=== PATIENT | female | born 1965 | race Caucasian/White ===

== ENCOUNTER 2018-07-25 05:46 | Day surgery (SDC) | payer BC ==
[2018-07-25] MEDS: BUPIVACAINE 0.25% (MPF) 30 ML INJ (07:23)
[2018-07-25] MEDS ORDERED: NEOSTIGMINE 3 MG/3 ML SYRINGE ×2 (07:29→08:04)
[2018-07-25] MEDS ORDERED: GLYCOPYRROLATE 0.4 MG INJ ×3 (07:29→08:04)
[2018-07-25] MEDS ORDERED: ROCURONIUM 50 MG INJ (07:29)
[2018-07-25] MEDS ORDERED: SUCCINYLCHOLINE CHLORIDE 100 MG/5 ML SYG IV (07:29)
[2018-07-25] MEDS ORDERED: LIDOCAINE 2% (SDV) 5 ML INJ (07:29)
[2018-07-25] MEDS ORDERED: MEPERIDINE 100 MG INJ (07:29)
[2018-07-25] MEDS ORDERED: PROPOFOL 20 ML (07:29)
[2018-07-25] MEDS ORDERED: METOCLOPRAMIDE 10 MG INJ (08:04)
[2018-07-25] MEDS ORDERED: ONDANSETRON 4 MG INJ (08:04)
[2018-07-25] MEDS ORDERED: EPHEDrine SULFATE 50 MG/5 ML SYG IV (08:30)
[2018-07-25] MEDS ORDERED: DIPHENHYDRAMINE 50 MG INJ IV (08:30)
[2018-07-25] MEDS ORDERED: MIDAZOLAM 1 MG/ML 2 ML INJ IV (08:30)
[2018-07-25] MEDS ORDERED: OXYCODONE/ACETAMINOPHEN (5/325) TAB PO ×4 (08:30→09:00)
[2018-07-25] MEDS ORDERED: MEPERIDINE 25 MG INJ IV (08:30)
[2018-07-25] MEDS ORDERED: METOCLOPRAMIDE 10 MG INJ IV (08:30)
[2018-07-25] MEDS ORDERED: FENTAnyl 50 MCG/ML VIAL IV ×3 (08:30)
[2018-07-25] MEDS ORDERED: ONDANSETRON 4 MG INJ IV ×2 (08:30→09:00)
[2018-07-25] MEDS ORDERED: LABETALOL HCL 20MG INJ IV (08:30)
[2018-07-25] MEDS ORDERED: hydrALAzine 20 MG INJ IV (08:30)
[2018-07-25] MEDS ORDERED: HYDROmorphONE 1 MG/5 ML IV SYRINGE IV ×2 (08:30)
[2018-07-25] MEDS ORDERED: morphine 2 MG INJ IV (09:00)
[2018-07-25] MEDS: HYDROmorphONE 1 MG/5 ML IV SYRINGE IV ×2 (09:00→09:33)
== END 2018-07-25 11:10 | disposition home or self-care (01) ==
LOC: SDS 05:46
DX: K80.10 Calculus of gallbladder with chronic cholecystitis without obstruction (principal); E78.5 Hyperlipidemia, unspecified; G43.809 Other migraine, not intractable, without status migrainosus
CPT/HCPCS: 47562; 88304